=== PATIENT | male | born 1950 | race Caucasian/White ===

== ENCOUNTER → 2020-04-08 16:38 | Outpatient (CLI) | payer OTHER, SELFPAY ==
[2020-04-08 18:58] LABS: Prostate Specific Antigen 3.78 ng/mL (0.10-4.00)
== END ==
PROVIDERS: PCP Family Medicine; Referring Provider Specialist; Visit Provider Specialist
DX: N39.0 Urinary tract infection, site not specified (principal); N40.1 Benign prostatic hyperplasia with lower urinary tract symptoms; N13.8 Other obstructive and reflux uropathy; N52.9 Male erectile dysfunction, unspecified; K42.9 Umbilical hernia without obstruction or gangrene
CPT/HCPCS: 36415; 51798; 81002; 84153; 87086; 99214